=== PATIENT | female | born 1960 | race Native Hawaiian/Other Pacific Islander ===

== ENCOUNTER 2024-01-10 11:44 | Inpatient (IN) ==
[2024-01-10 13:19] LABS: Urine Appearance Clear; Urine Bilirubin Negative (Negative); Urine Blood Negative (Negative); Urine Color Colorless; Urine Glucose Negative (Negative); Urine Ketones Negative (Negative); Urine Nitrite Negative (Negative); Urine Protein Negative (Negative); Urine Specific Gravity 1.005 (1.002-1.030); Urine Urobilinogen Negative (Negative)
[2024-01-10 13:22] LABS: ABS Lymphocytes 2.2 10^3/uL (1.0-4.8); ABS Monocytes 0.5 10^3/uL (0.0-0.9); ABS Neutrophils 3.8 10^3/uL (1.5-7.6); ABS Nucleated RBC 0.01 10^3/ul; Hematocrit 39.7 % (35-45); Hemoglobin 13.7 g/dL (11.5-14.3); Lymphocyte % 33.7 %; Mean Corpuscular Hemoglobin 29.1 pg (27-33); Mean Corpuscular Hgb Conc 34.4 g/dL (31-36); Mean Corpuscular Volume 84.7 fL (80-97); Mean Platelet Volume 7.8 fL (7.5-11.2); Nucleated Red Blood Cells % 0.2 %/100WBC (0.0-0.8); Platelet Count 195 10^3/uL (150-450); Red Blood Count 4.69 10^6/uL (3.63-4.92); Red Cell Distribution Width 14.1 % (12-17); White Blood Count 6.6 10^3/uL (3.8-11.8)
[2024-01-10 13:43] LABS: Urine Benzodiazepine Screen None Detected (None Detect); Urine Cannabinoids Screen None Detected (None Detect); Urine Opiates Screen None Detected (None Detect)
[2024-01-10 13:59] LABS: ALT 21 U/L (7-52); AST 24 U/L (13-39); Acetaminophen < 15 mcg/mL; Albumin 4.4 g/dL (3.2-5.2); Albumin/Globulin Ratio 1.6 (1-3); Alcohol, S < 13 mg/dL (<13); Alkaline Phosphatase 67 U/L (35-149); Anion Gap 8 mmol/L (2-16); Blood Urea Nitrogen 20 mg/dL (6-24); CO2 Carbon Dioxide 27 mmol/L (22-32); Calcium 9.7 mg/dL (8.6-10.3); Chloride 108 mmol/L (101-111); Creatinine, Serum 0.93 mg/dL (0.51-0.95); Globulin 2.7 g/dL (2-4); Glucose 65 mg/dL (70-100); Potassium 3.8 mmol/L (3.5-5.0); Salicylate < 2.50 mg/dL (<30); Sodium 143 mmol/L (135-145); Total Bilirubin 0.3 mg/dL (0.2-1.0); Total Protein 7.1 g/dL (6.4-8.9); eGFR CKD-EPI 69.1 (>60)
[2024-01-10] MEDS ORDERED: Al Hydrox/Mg Hydrox/Simet LIQ 30 ML UDC PO PRN (14:44)
[2024-01-10] MEDS ORDERED: Polyethylene Glycol 3350 17 GM PACKET PO PRN (14:52)
[2024-01-10] MEDS ORDERED: Dextrose 50% Syringe 50 ml 25 GM/50 ML SYRINGE IV PUSH PRN (21:06)
[2024-01-10] MEDS ORDERED: Glucose ORAL 15 GM TUBE PO PRN (21:56)
[2024-01-10] MEDS: Amoxicillin/Clavul 500/125 TAB (Augmentin 500 mg tab) PO SCH (22:46)
[2024-01-10] MEDS: Carbidopa/Levodop 25/100 MG TAB PO SCH (22:47)
[2024-01-11] MEDS: Nicotine PATCH 21 MG/24 HR PATCH TRANSDERM SCH (07:23)
[2024-01-11] MEDS: Vitamin THERAPEUTIC TAB PO SCH (07:24)
[2024-01-11 08:29] LABS: HDL Cholesterol 70.3 mg/dL
[2024-01-13] MEDS: Insulin GLARGINE 100 un/ml 10 ml VIAL SUBCUT SCH (20:37)
[2024-01-14] MEDS: Insulin GLARGINE 100 un/ml 10 ml VIAL SUBCUT SCH (20:37)
[2024-01-16 10:57] VITALS: BP 116/77
== END 2024-01-16 12:50 | disposition home or self-care (01) | DRG 885 ==
LOC: ED 11:44 → EDHOLD 14:44 → BSU 19:02
PROVIDERS: ADMIT Student in an Organized Health Care Education/Training Program; ATTEND Student in an Organized Health Care Education/Training Program

== ENCOUNTER 2024-01-25 17:30 | Inpatient (IN) ==
[2024-01-25] MEDS: Etomidate 20 mg/10 ml 2 MG/ML 10 ml VIAL IV ONE (17:38)
[2024-01-25] MEDS: Succinylcholine 200 mg VIAL 20 mg/ml 10 ml VIAL (200 mg) IV ONE (17:38)
[2024-01-25] MEDS ORDERED: Etomidate 40 mg/20 ml (2 MG/ML) 20 ml VIAL (40 mg) ONE (17:39)
[2024-01-25] MEDS ORDERED: Succinylcholine 200 mg VIAL 20 mg/ml 10 ml VIAL (200 mg) ONE (17:39)
[2024-01-25] MEDS ORDERED: Propofol 10 mg/ml 100 ML BTL 1,000 MG/100 ML BTL ONE (17:45)
[2024-01-25] MEDS ORDERED: fentaNYL 100 mcg/2 ml 50 MCG/ML VIAL ONE (17:55)
[2024-01-25] MEDS: fentaNYL 100 mcg/2 ml 50 MCG/ML VIAL IV SLOW PU PRN (17:56)
[2024-01-25] MEDS: Propofol 10 mg/ml 100 ML BTL 1,000 MG/100 ML BTL IV SCH (17:58)
[2024-01-25 17:59] LABS: ABS Lymphocytes 2.2 10^3/uL (1.0-4.8); ABS Monocytes 0.4 10^3/uL (0.0-0.9); ABS Nucleated RBC 0.01 10^3/ul; Eosinophil % 0.1 %; Hematocrit 39.4 % (35-45); Hemoglobin 13.3 g/dL (11.5-14.3); Lymphocyte % 39.1 %; Mean Corpuscular Hemoglobin 28.8 pg (27-33); Mean Corpuscular Hgb Conc 33.8 g/dL (31-36); Mean Corpuscular Volume 85.2 fL (80-97); Mean Platelet Volume 7.8 fL (7.5-11.2); Nucleated Red Blood Cells % 0.1 %/100WBC (0.0-0.8); Platelet Count 173 10^3/uL (150-450); Red Blood Count 4.62 10^6/uL (3.63-4.92); Red Cell Distribution Width 13.8 % (12-17); White Blood Count 5.6 10^3/uL (3.8-11.8)
[2024-01-25 18:02] LABS: Resp Rate 16
[2024-01-25 18:07] LABS: INR 1.11 (0.83-1.13)
[2024-01-25 18:10] LABS: Urine Appearance Clear; Urine Bilirubin Negative (Negative); Urine Blood Negative (Negative); Urine Color Colorless; Urine Glucose Negative (Negative); Urine Ketones Negative (Negative); Urine Nitrite Negative (Negative); Urine Protein Negative (Negative); Urine Specific Gravity 1.007 (1.002-1.030); Urine Urobilinogen Negative (Negative); Urine pH 5.5 (5.0-8.0)
[2024-01-25 18:19] LABS: PCO2 Arterial 34 mmHg (35-45); PO2 Arterial 198 mmHg (80-100)
[2024-01-25] MEDS ORDERED: diazePAM INJ CARPUJECT 5 MG/ML SYRINGE IV PRN (18:20)
[2024-01-25 18:21] LABS: High Sens Troponin Baseline 4 pg/mL (<15)
[2024-01-25 18:26] LABS: Urine Benzodiazepine Screen None Detected (None Detect); Urine Cannabinoids Screen None Detected (None Detect); Urine Opiates Screen None Detected (None Detect)
[2024-01-25 18:34] LABS: ALT 11 U/L (7-52); AST 19 U/L (13-39); Albumin 3.9 g/dL (3.2-5.2); Albumin/Globulin Ratio 1.6 (1-3); Alkaline Phosphatase 66 U/L (35-149); Anion Gap 8 mmol/L (2-16); Blood Urea Nitrogen 20 mg/dL (6-24); C Reactive Protein 1.82 mg/L (<8.01); CO2 Carbon Dioxide 21 mmol/L (22-32); Calcium 8.6 mg/dL (8.6-10.3); Chloride 109 mmol/L (101-111); Creatine Kinase 61 U/L (10-223); Creatinine, Serum 0.96 mg/dL (0.51-0.95); Globulin 2.4 g/dL (2-4); Glucose 123 mg/dL (70-100); Lipase 14 U/L (11.0-82.0); Magnesium 1.9 mg/dL (1.9-2.7); Potassium 3.6 mmol/L (3.5-5.0); Sodium 138 mmol/L (135-145); Total Bilirubin 0.2 mg/dL (0.2-1.0); Total Protein 6.3 g/dL (6.4-8.9); eGFR CKD-EPI 66.5 (>60)
[2024-01-25] MEDS: Charcoal ACTIVATED 25 GM/120 ML BTL NG TUBE ONE (18:41)
[2024-01-25 18:42] LABS: Acetaminophen < 15 mcg/mL
[2024-01-25 18:55] LABS: Salicylate < 2.50 mg/dL (<30)
[2024-01-25 19:38] LABS: High Sensitivity Troponin 1 Hr 3 pg/mL (<15)
[2024-01-25] MEDS: Enoxaparin 40 MG/0.4 ML SYR SUBCUT SCH (22:13)
[2024-01-25 22:14] LABS: PCO2 Arterial 38 mmHg (35-45); PO2 Arterial 123 mmHg (80-100)
[2024-01-25] MEDS: Pantoprazole VIAL 40 MG VIAL IV SCH (22:15)
[2024-01-25] MEDS: Chlorhexidine MOUTHWASH 0.12% 15 ML UDC TOPICAL SCH (22:15)
[2024-01-25] MEDS: Labetalol IV 5 MG/ML 20 ml VIAL IV PUSH PRN (22:19)
[2024-01-25] MEDS: Lactated Ringers 1000 ml BAG 1,000 ML IV ONE (22:24)
[2024-01-26] MEDS: Lactated Ringers 1000 ml BAG 1,000 ML IV ONE (02:50)
[2024-01-26 04:54] LABS: ABS Lymphocytes 1.3 10^3/uL (1.0-4.8); ABS Monocytes 0.5 10^3/uL (0.0-0.9); ABS Neutrophils 5.5 10^3/uL (1.5-7.6); Eosinophil % 0.1 %; Hematocrit 38.6 % (35-45); Hemoglobin 13.1 g/dL (11.5-14.3); Lymphocyte % 17.4 %; Mean Corpuscular Hemoglobin 28.8 pg (27-33); Mean Corpuscular Hgb Conc 33.9 g/dL (31-36); Mean Platelet Volume 7.8 fL (7.5-11.2); Platelet Count 179 10^3/uL (150-450); Red Blood Count 4.55 10^6/uL (3.63-4.92); White Blood Count 7.3 10^3/uL (3.8-11.8)
[2024-01-26 05:34] LABS: Albumin 3.8 g/dL (3.2-5.2); Albumin/Globulin Ratio 1.6 (1-3); Calcium 8.7 mg/dL (8.6-10.3); Creatinine, Serum 0.76 mg/dL (0.51-0.95); Globulin 2.4 g/dL (2-4); Magnesium 1.9 mg/dL (1.9-2.7); Phosphorus 3.4 mg/dL (2.5-5.0); Potassium 3.9 mmol/L (3.5-5.0); Total Bilirubin 0.3 mg/dL (0.2-1.0); Total Protein 6.2 g/dL (6.4-8.9)
[2024-01-26 05:51] LABS: TSH Ultra Thyroid Stim Horm 2.19 mcIU/mL (0.34-5.60)
[2024-01-26 05:53] LABS: Free T4 0.7 ng/dL (0.61-1.12)
[2024-01-26] MEDS ORDERED: Midazolam 5 mg/5 ml VIAL 1 mg/ml 5 ml VIAL (5 mg) IV SLOW PU PRN (06:01)
[2024-01-26] MEDS ORDERED: Dextrose 50% Syringe 50 ml 25 GM/50 ML SYRINGE IV PUSH PRN (07:32)
[2024-01-26] MEDS: Carbidopa/Levodop 25/100 MG TAB PO SCH (21:32)
[2024-01-27 04:21] LABS: ABS Basophils 0.1 10^3/uL (0.0-0.1); ABS Lymphocytes 2.2 10^3/uL (1.0-4.8); ABS Monocytes 0.6 10^3/uL (0.0-0.9); ABS Neutrophils 3.7 10^3/uL (1.5-7.6); ABS Nucleated RBC 0.02 10^3/ul; Eosinophil % 0.1 %; Hematocrit 35.2 % (35-45); Hemoglobin 11.9 g/dL (11.5-14.3); Lymphocyte % 33.2 %; Mean Corpuscular Hemoglobin 29.2 pg (27-33); Mean Platelet Volume 8.2 fL (7.5-11.2); Nucleated Red Blood Cells % 0.2 %/100WBC (0.0-0.8); Platelet Count 154 10^3/uL (150-450); Red Blood Count 4.09 10^6/uL (3.63-4.92); Red Cell Distribution Width 14.1 % (12-17); White Blood Count 6.5 10^3/uL (3.8-11.8)
[2024-01-27 05:07] LABS: ALT 9 U/L (7-52); Albumin 3.2 g/dL (3.2-5.2); Albumin/Globulin Ratio 1.5 (1-3); Alkaline Phosphatase 55 U/L (35-149); Anion Gap 6 mmol/L (2-16); Blood Urea Nitrogen 16 mg/dL (6-24); CO2 Carbon Dioxide 23 mmol/L (22-32); Calcium 7.9 mg/dL (8.6-10.3); Chloride 109 mmol/L (101-111); Creatinine, Serum 0.74 mg/dL (0.51-0.95); Globulin 2.2 g/dL (2-4); Glucose 172 mg/dL (70-100); Sodium 138 mmol/L (135-145); Total Bilirubin 0.4 mg/dL (0.2-1.0); Total Protein 5.4 g/dL (6.4-8.9); eGFR CKD-EPI 90.9 (>60)
[2024-01-27 07:26] LABS: Potassium, Whole Blood 4.6 mmol/L (3.4-4.5)
[2024-01-27] MEDS ORDERED: Al Hydrox/Mg Hydrox/Simet LIQ 30 ML UDC PO PRN (15:02)
[2024-01-27 16:29] VITALS: BP 108/67
== END 2024-01-27 17:17 | DRG 918 ==
LOC: ED 17:30 → EDHOLD 18:38 → ICU 20:04
PROVIDERS: ADMIT Internal Medicine Critical Care Medicine; ATTEND Internal Medicine Critical Care Medicine

== ENCOUNTER 2024-01-27 17:18 | Inpatient (IN) ==
[2024-01-27] MEDS ORDERED: Al Hydrox/Mg Hydrox/Simet LIQ 30 ML UDC PO PRN (17:40)
[2024-01-27] MEDS ORDERED: Polyethylene Glycol 3350 17 GM PACKET PO PRN (17:42)
[2024-01-27] MEDS: Carbidopa/Levodop 25/100 MG TAB PO SCH (21:28)
[2024-01-28 08:15] LABS: HDL Cholesterol 51.7 mg/dL
[2024-01-30] MEDS: Insulin GLARGINE 100 un/ml 10 ml VIAL SUBCUT SCH (20:50)
[2024-02-03 10:21] VITALS: BP 140/78
== END 2024-02-03 12:31 | disposition home or self-care (01) | DRG 918 ==
LOC: BSU 17:18
PROVIDERS: ADMIT Psychiatry & Neurology Psychiatry; ATTEND Psychiatry & Neurology Psychiatry

== ENCOUNTER 2024-07-23 18:03 | Inpatient (IN) ==
[2024-07-23 19:43] LABS: ABS Lymphocytes 1.2 10^3/uL (1.0-4.8); ABS Monocytes 0.4 10^3/uL (0.0-0.9); ABS Neutrophils 2.7 10^3/uL (1.5-7.6); Hematocrit 42.2 % (35-45); Lymphocyte % 27.5 %; Mean Corpuscular Hemoglobin 28.5 pg (27-33); Mean Corpuscular Hgb Conc 33.2 g/dL (31-36); Mean Corpuscular Volume 85.8 fL (80-97); Mean Platelet Volume 7.8 fL (7.5-11.2); Nucleated Red Blood Cells % 0.1 %/100WBC (0.0-0.8); Platelet Count 216 10^3/uL (150-450); Red Blood Count 4.92 10^6/uL (3.63-4.92); Red Cell Distribution Width 13.9 % (12-17); White Blood Count 4.3 10^3/uL (3.8-11.8)
[2024-07-23 20:25] LABS: Albumin 4.2 g/dL (3.2-5.2); Albumin/Globulin Ratio 1.8 (1-3); Calcium 9.2 mg/dL (8.6-10.3); Creatinine, Serum 0.84 mg/dL (0.51-0.95); Globulin 2.3 g/dL (2-4); Potassium 3.8 mmol/L (3.5-5.0); Total Bilirubin 0.4 mg/dL (0.2-1.0); Total Protein 6.5 g/dL (6.4-8.9); eGFR CKD-EPI 77.6 (>60)
[2024-07-23 20:31] LABS: TSH Ultra Thyroid Stim Horm 1.61 mcIU/mL (0.34-5.60)
[2024-07-23] MEDS: Carbidopa/Levodop 25/100 MG TAB PO ONE (23:23)
[2024-07-24] MEDS ORDERED: Al Hydrox/Mg Hydrox/Simet LIQ 30 ML UDC PO PRN (00:25)
[2024-07-24 01:32] LABS: Acetaminophen < 15 mcg/mL; Alcohol, S < 13 mg/dL (<13); Salicylate < 2.50 mg/dL (<30)
[2024-07-24] MEDS: Vitamin THERAPEUTIC TAB PO SCH (07:50)
[2024-07-24 07:59] LABS: HDL Cholesterol 78.3 mg/dL
[2024-07-24] MEDS: DOXEPIN 3 MG PO SCH (20:26)
[2024-07-24] MEDS: CMCS: FluvoxaMINE 50 mg TAB (NF) PO SCH (20:32)
[2024-07-25] MEDS: Empagliflozin 25 MG TAB PO SCH (07:59)
[2024-07-25] MEDS: CMCS: Doxepin 10 mg CAP (NF) PO SCH (20:13)
[2024-07-28 09:31] VITALS: BP 105/72
== END 2024-07-28 12:20 | disposition home or self-care (01) | DRG 885 ==
LOC: ED 18:03 → BSU 23:19
PROVIDERS: ADMIT Psychiatry & Neurology Psychiatry; ATTEND Student in an Organized Health Care Education/Training Program